=== PATIENT | male | born 1950 | race Caucasian/White ===

== ENCOUNTER → 2020-07-24 08:30 | Outpatient (CLI) | payer MEDICARE, SELFPAY ==
--- NOTE | ~2020-07-24 | XR_ITS ---
EXAMINATION: XR abdomen/kub 1V DATE: 07/24/2020 09:00 INDICATION: Flank pain. TECHNIQUE: A supine view of the abdomen on 2 radiographs was obtained. COMPARISON: CT abdomen and pelvis 07/24/2020 FINDINGS: There are no dilated loops of bowel. There is a large volume of stool in the colon. There a re phleboliths in the pelvis. IMPRESSION: 1. No urolithiasis. 2. Nonobstructive bowel gas pattern. Reviewed, dictated and finalized at location A.
--- NOTE | ~2020-07-24 | CT_ITS ---
EXAMINATION: CT abdomen pelvis wo con DATE: 07/24/2020 09:00 INDICATION: Flank pain and low back pain. TECHNIQUE: Computed tomography (CT) of the abdomen and pelvis was performed without intravenous contr ast. Automated exposure control and iterative reconstruction technique were employed. The dose-length product was 625.56 mGy-cm. COMPARISON: None FINDINGS: Mild scattered linear atelectasis in the bilateral lower lobes. Heart size is normal. No pericardial or pleural effusion. Small sliding-type hiatal hernia. Liver, gallbladder, spleen, pancreas and bilat eral adrenal glands are normal. 2.5 cm exophytic cyst arising from the upper pole of the left kidney. Bilateral kidneys are otherwise unremarkable with no urolithiasis or hydronephrosis. Bowels includin g the appendix are normal. Bladder is normal. Prostatomegaly. No free intraperitoneal gas or fluid. N o pathologically enlarged abdominal or pelvic lymphadenopathy. Small fat-containing left inguinal her dalton. Tiny fat-containing umbilical hernia. Mild thoracolumbar dextrocurvature with moderate to severe lower thoracic and upper lumbar spondylosis. IMPRESSION: 1. No acute intra-abdominal/pelvic process. 2. Moderate to severe lower thoracic and upper lumbar spondylosis. 3. Prostatomegaly. 4. Small sliding-type hiatal hernia. 5. Small fat-containing left inguinal hernia and tiny fat-containing umbilical hernia.. Reviewed, dictated and finalized at location A.
== END ==
PROVIDERS: PCP Internal Medicine; Visit Provider Urology
DX: R10.9 Unspecified abdominal pain (principal); N40.0 Benign prostatic hyperplasia without lower urinary tract symptoms; M47.894 Other spondylosis, thoracic region; M47.896 Other spondylosis, lumbar region; K44.9 Diaphragmatic hernia without obstruction or gangrene; K40.90 Unilateral inguinal hernia, without obstruction or gangrene, not specified as recurrent; K42.9 Umbilical hernia without obstruction or gangrene
CPT/HCPCS: 74018; 74176

== ENCOUNTER 2020-08-01 11:23 | Outpatient (CLI) | payer MEDICARE, SELFPAY ==
--- NOTE | 2020-08-01 11:29 | ECG_ITS ---
Measurements Intervals [place] Rate: 62 P: 58 [place]: 161 QRS: 38 QRSD: 101 T: 49 QT: 396 QTc: 405 Interpretive Statements SINUS RHYTHM DELAYED PRECORDIAL R/S TRANSITION BASELINE ARTIFACT- II, III, AVF BORDERLINE ECG Electronically Signed On 08-01-2020 12:12:45 CDT by Juan Carlos Knight D.O.
== END 2020-08-01 11:24 | disposition home or self-care (01) ==
LOC: ANHSURGERY 11:24
PROVIDERS: PCP Internal Medicine; Visit Provider Urology
DX: E78.2 Mixed hyperlipidemia (principal); N32.9 Bladder disorder, unspecified; R94.31 Abnormal electrocardiogram [ECG] [EKG]; Z01.818 Encounter for other preprocedural examination
CPT/HCPCS: 87086; 93005

== ENCOUNTER → 2020-08-11 00:15 | Outpatient (CLI) | payer MEDICARE, SELFPAY ==
[2020-08-11 19:27] LABS: SARS-CoV-2 RNA PCR Negative
== END ==
PROVIDERS: PCP Internal Medicine; Visit Provider Urology
DX: Z01.812 Encounter for preprocedural laboratory examination (principal); Z20.822 Contact with and (suspected) exposure to COVID-19
CPT/HCPCS: C9803; U0003; U0005

== ENCOUNTER 2020-08-14 00:41 | Day surgery (SDC) | payer MEDICARE, SELFPAY ==
[2020-07-30 12:07] VITALS: BMI 26.9
[2020-08-14] VITALS (7 sets, daily range): BP systolic 120–151; BP diastolic 75–93; PULSE 50–64; RESP 11–16; TEMP 35.7–36; O2SAT 99–100
--- NOTE | 2020-08-14 08:26 | WPDHPUPDATE1 ---
History and Physical Update Update Date/Time: 08/14/20 08:26 History and Physical has been reviewed, including an updated exam of the patient. There are NO changes in the patient's condition. Risks, benefits, and alternatives have been discussed and questions answered. Patient agrees to proceed with procedure.
[2020-08-14] MEDS: LACTATED RINGERS 1,000 ML 30 ML IV CONT (09:01)
--- NOTE | 2020-08-14 09:25 | P.PNAN_ITS ---
Anes - Initial Pre Proc Eval Procedure: Operation Date: 08/14/20 10:30 Proposed Procedures p Cystoscopy with Bladder Biopsy and Fulgeration - Arden Warner MD Date/Time: 08/14/20 09:25 Surgeon: Arden Warner MD Pre Op Diagnosis: bladder lesion Patient Data Age: 69 Gender: M Height: 1.91 m Weight: 98 kg Last Vital Signs Temp 96.3 F L 08/14/20 08:34 Pulse 64 08/14/20 08:34 Resp 16 08/14/20 08:34 BP 133/82 08/14/20 08:34 Pulse Ox 99 08/14/20 08:34 Allergies Allergy/AdvReac Type Severity Reaction Status Date / Time No Known Allergies Allergy Mild Verified 08/14/20 08:54 Home Medications Medication Instructions Recorded Confirmed Type aspirin 81 mg tablet,delayed 81 mg PO DAILY 06/23/19 08/14/20 History release lactobacillus combination no.8 3 3,000 mmu cells PO DAILY 06/23/19 08/14/20 History billion cell capsule multivitamin 1 cap PO DAILY 06/23/19 08/14/20 History omega-3 fatty acids 1,000 mg 1,000 mg PO DAILY 06/23/19 08/14/20 History capsule mometasone 0.1 % topical ointment 1 applic TOPICAL PRN PRN gm 05/16/20 08/14/20 History atorvastatin 10 mg tablet 10 mg PO DAILY #30 tablet 07/25/20 08/14/20 Rx zinc 10 mg PO DAILY 07/30/20 08/14/20 History Patient hx anesthesia problems: none Family hx anesthesia problems: none PMFSH Past Medical History Medical History Bilateral low back pain with sciatica Elevated prostate specific antigen [PSA] Encounter for screening for malignant neoplasm of colon Knee pain, bilateral Malignant neoplasm of bladder, unspecified Mixed hyperlipidemia Other chronic pain Family History Family History Mother Family history of malignant neoplasm of breast in first degree relative Family history of heart disease in male family member before age 55 Father Family history of heart disease in male family member before age 55 Social History Social History Smoking status: Never smoker Alcohol intake: never Living arrangements: with family Spiritual care concerns: No Anes - Eval Final PreProcedure Day of Procedure 08/14/20 09:25 Patient weight: normal Heart: regular rate and rhythm Lungs: clear to auscultation Airway: Mallampati scale class II Neurological: alert and oriented Last oral intake: >/= 8 hours ASA classification: III Emergent: no Anesthetic plan: proceed Anesthesia type and monitoring: general LMA and standard monitoring Informed Consent: The patient's anesthetic plan and its attendant risks and benefits were discussed with the patient/family/POA. Questions were solicited and answers provided to the satisfaction of the patient/family/POA.
[2020-08-14] MEDS: ceFAZolin 2 GM/D5W 50 ML 2 GM/50 ML BAG IVPB (10:05)
--- NOTE | 2020-08-14 10:28 | W.PM.PROC2 ---
Procedure Note - Detailed Date of Procedure 08/14/20 Pre-op Diagnosis bladder lesion Post-op Diagnosis same Procedure Performed Cysto bladder biopsy with fulguration Surgeon Arden Warner MD Anesthesia general Description of Procedure Patient is taken the operative suite and correctly identified. Once anesthesia was obtained he was placed in a dorsal lithotomy position and prepped and draped usual sterile fashion. Twenty-two Greenlandic scope was inserted the bladder and direct vision. There is no urethral strictures. Prostate as lateral lobe hypertrophy as well as a moderate-sized median lobe.. Bladder itself has no papillary growths but does have some erythema along floor prep down lay on the left side. We used the cold cup biopsy to biopsy this area. We fulgurated with a Bugbee electrode. There was good hemostasis. 2% viscous lidocaine was inserted urethra patient is taken recovery room in stable condition. He will call for path results in a week. Drains No Packing No Pathology yes Complications No immediate complications Condition stable Disposition PACU
== END 2020-08-14 12:17 | disposition home or self-care (01) ==
PROVIDERS: PCP Internal Medicine; Visit Provider Urology
PROC: 0TBB8ZX Excision of Bladder, Via Natural or Artificial Opening Endoscopic, Diagnostic (ICD-10-PCS; CPT 52204; principal; 2020-08-14 10:30)
DX: N30.20 Other chronic cystitis without hematuria (principal); E78.5 Hyperlipidemia, unspecified; G89.29 Other chronic pain; Z79.82 Long term (current) use of aspirin; Z85.51 Personal history of malignant neoplasm of bladder
CPT/HCPCS: 52204; 87086; 88305; 93005; A9270; C9803; J0131; J0690; J1100; J2704; J3010; J7120; U0003; U0005

== ENCOUNTER 2020-10-09 09:00 | Outpatient (RCR) | payer MEDICARE, SELFPAY ==
--- NOTE | 2020-09-13 14:42 | PTOPEVAL ---
Thank you for referring Eligio Nunez to [facility].? The patient is scheduled to be seen for therapy? 1 x/week for 6 weeks. Please review, sign, date and return this plan of care PRANAV. I agree with and certify that the following plan of care is medically necessary. Referring Physician Date Attending Provider: Lamin Cabrera, Diagnosis chronic back pain Additional Evaluation Detail He received therapy for his back prior to the start of COVID. He does not perform a HEP. He achieve ~5000 steps a day. Does not perform a fitness or stretching program. Subjective Information He had increased back pain Query Text:As Reported By Patient/ with recent bladder infection. Family He has increased pain with prolonged sitting. He was taking long drives to the [facility] to see family with stopping only every 3-4 hours. At times he has decreased balance on steps when carrying objects. He performs primary care md and yardwork. Denies any pain changes with daily task. He tries to avoid lifting heavy objects. He is able manage 20# without limitations. Improved back pain with movement. Previous Treatments Previous Treatments For This Problem 1.4 yrs ago at [place]. Pain Assessment Bilateral Lower Back Reported Pain Level 1 Pain Description Sharp Pain Frequency Chronic,Continuous Greatest Pain Intensity 4 Pain Aggravating Factors Bending,Prolonged Position Pain Behaviors None Cervical and Lumbar ROM Lumbar ROM Lumbar Flexion Active Floor:Hands to: Lateral Flexion right lateral knee- and left mid thigh Lumbar Comments 25% trunk ext pain with left lateral flex Cervical and Lumbar Muscle Testing Lumbar Strength Upper Back Extension 3-Fair- Lower Back Extension 3-Fair- Lumbar Functional Strength Comments unable to maintain trunk in midline with single leg stance or seated marching Lower Extremity Muscle Strength Testing Hip Strength Bilateral Hip Flexion Strength 4- Good - Hip Extension Strength 3 Fair Hip Abduction Strength 3 Fair Knee
--- NOTE | 2020-09-20 10:31 | PCPTNOTE ---
Patient did not show up for scheduled appointment this date. Called and had to leave a message.
--- NOTE | 2020-10-04 10:16 | PCPTNOTE ---
Patient did not show up for scheduled appointment this date. Called & had to leave a message.
--- NOTE | 2020-10-09 13:35 | PTOPEVAL ---
Physical Therapy Discharge Summary Thank you for referring Eligio Nunez to [facility] [place].? Eligio has received 4 therapy visits to address chronic back pain. He demonstrates indep with his HEP at this time. He has reached his therapy goals and will be DC from therapy services. See summary below for detailed information on progress. Please review, sign, date and return this discharge summary PRANAV. I agree with and certify that the following plan of care is medically necessary. Referring Physician Date Attending Provider: Lamin Cabrera DO Diagnosis chronic back pain Additional Evaluation Detail He received therapy for his back prior to the start of COVID. He achieves ~5000 steps a day. Subjective Information He denies any significant back Query Text:As Reported By Patient/ pain or limitations with Family daily task. He is performing his HEP, but not all of the provided exercises. He reports prolonged sitting. He will be taking long drives to the [facility] to see family with stopping only every 3-4 hours. Pain Assessment Self Report Pain Assessment Bilateral Lower Back Reported Pain Level 0 Lowest Pain Intensity 0 Greatest Pain Intensity 1 Cervical and Lumbar ROM Lumbar ROM Lumbar Flexion Active Floor:Hands to: Lateral Flexion lateral knee joint line:Active Hands to: Lumbar Comments 75% trunk ext no pain with trunk motion Cervical and Lumbar Muscle Testing Lumbar Strength Upper Abdominal Strength 4-Good- Upper Back Extension 3 Fair Lower Back Extension 3 Fair Lumbar Functional Strength Comments unable to maintain trunk in midline with single leg stance improved control and position with seated marching Lower Extremity Muscle Strength Testing Hip Strength Bilateral Hip Flexion Strength 4+ Good + Hip Extension Strength 4- Good - Hip Abduction Strength 3+ Fair + Knee Strength Bilateral Knee Flexion Strength 4+ Good + Knee Extension Strength 5 Normal Palpation Assessment Palpation no tenderness of mid to low back region General Exercise Exercise Type Active,Stabilization Exercise Description reviewed HEP: Query Text:Record Sets, Reps, - sit<>stand with cues for LE Resistance, and Position position and full hip ext to achieve max benefit. - hooklying piriformis
== END 2020-10-09 14:18 | disposition home or self-care (01) ==
LOC: ANHPT 09:00
PROVIDERS: PCP Internal Medicine; Visit Provider Internal Medicine
DX: M54.5 Low back pain (principal); G89.29 Other chronic pain
CPT/HCPCS: 97110; 97162

== ENCOUNTER → 2021-07-13 07:49 | Outpatient (CLI) | payer MEDICARE, SELFPAY ==
--- NOTE | ~2021-07-13 | MR_ITS ---
EXAMINATION: MR lumbar spine wo con DATE: 07/13/2021 08:59 INDICATION: lumbar radiculopathy, lbp radiating down right leg x2mos, pt . TECHNIQUE: Magnetic resonance imaging (MRI) of the lumbar spine was performed without intravenous con trast. Sequences included sagittal T2-weighted FSE, sagittal T2-weighted FS FSE, sagittal T1-weighted FSE, and axial T2-weighted FSE. COMPARISON: CT abdomen pelvis 07/24/2020. FINDINGS: The last fully formed and hydrated disc is designated L5-S1. The marrow signal is benign po ssibly with some degree of conversion. Conus terminates at L1-2. Multilevel disc dehydration. Thoraco lumbar scoliosis. 1 to 2 mm retrolisthesis of T2-L3. 1 to 2 mm anterolisthesis of L4 on L5 and L5 on S1. The following disc levels are specifically discussed: T11-T12: Mild diffuse bulge, 3 mm right paracentral extrusion. There is mild facet joint osteoarthrit is. There is no neural foraminal stenosis. There is no central canal stenosis. T12-L1: Mild diffuse bulge There is moderate facet joint osteoarthritis. There is mild left inferior neural foraminal stenosis. There is no central canal stenosis. L1-L2: Moderate diffuse bulge There is moderate facet joint osteoarthritis. There is moderate neural foraminal stenosis. There is no central canal stenosis. L2-L3: Moderate diffuse bulge with a large right foraminal component. There is moderate facet joint o steoarthritis. There is mild neural foraminal stenosis. There is no central canal stenosis. L3-L4: Large diffuse bulge, superimposed 3 mm right paracentral extrusion, with a small focal annular rent. There is moderate facet joint osteoarthritis. There is moderate right and mild left neural for aminal stenosis. There is moderate central canal stenosis. L4-L5: Large diffuse bulge, 7 mm right paracentral disc extrusion tracking 18 mm up the posterior asp ect of the L4 vertebral body. There is severe facet joint osteoarthritis. There is severe right and m oderate left neural foraminal stenosis. There is severe central canal stenosis. L5-S1: Moderate diffuse bulge. There is severe facet joint osteoarthritis. There is no neural foramin al stenosis. There is no central canal stenosis. IMPRESSION: 1. Severe central canal and right neural foraminal stenosis at L4-5, caused by a combination of a lar ge L4-5 disc extrusion superimposed on a diffuse disc bulge and severe facet/ligamentum hypertrophy. 2. Multilevel mild to moderate degenerative disc and facet changes as described above. Reviewed, dictated and finalized at location K. IMPRESSION: 1. Severe central canal and right neural foraminal stenosis at L4-5, caused by a combination of a large L4-5 disc extrusion superimposed on a diffuse disc bul ge and severe facet/ligamentum hypertrophy. 2. Multilevel mild to moderate degenerative disc and facet changes as described above.
== END ==
PROVIDERS: PCP Internal Medicine; Visit Provider Nurse Practitioner
DX: M54.16 Radiculopathy, lumbar region (principal); M51.36 Other intervertebral disc degeneration, lumbar region
CPT/HCPCS: 72148

== ENCOUNTER 2022-08-20 07:49 | Outpatient (CLI) | payer MEDICARE, SELFPAY ==
--- NOTE | ~2022-08-20 | US_ITS ---
EXAMINATION: US aorta [facility] scr[facility] DATE: 08/20/2022 08:22 INDICATION: Family history of ischemic heart disease, hypercholesterolemia TECHNIQUE: Grayscale, color Doppler, and pulsed Doppler images of the aorta and common iliac arteries were obtained. COMPARISON: None. FINDINGS: Maximum vascular dimensions are as follows: Proximal aorta: 2.8 cm Mid aorta: 2.4 cm Distal aorta: 2.0 cm Right common iliac artery: 1.6 cm Left common iliac artery: 1.5 cm There is no evidence of abdominal aortic aneurysm. IMPRESSION: 1. No sonographically detected abdominal aortic aneurysm. Reviewed, dictated and finalized at location []
== END 2022-08-20 07:50 | disposition home or self-care (01) ==
PROVIDERS: PCP Family Medicine; Visit Provider Nurse Practitioner
DX: E78.00 Pure hypercholesterolemia, unspecified (principal); Z82.49 Family history of ischemic heart disease and other diseases of the circulatory system
CPT/HCPCS: 76706

== ENCOUNTER 2023-01-28 08:52 | Outpatient (CLI) | payer MEDICARE, SELFPAY | END 2023-01-28 08:53 | disposition home or self-care (01) | LOC: ANHBWCAUD 08:53 | PROVIDERS: PCP Family Medicine; Visit Provider Otolaryngology | DX: H93.19 Tinnitus, unspecified ear (principal); H90.3 Sensorineural hearing loss, bilateral | CPT/HCPCS: 92557; 92567 ==

== ENCOUNTER 2023-06-07 16:46 | Emergency (ER) | payer MEDICARE, SELFPAY ==
[2023-06-07 16:55] VITALS: BP 122/65; PULSE 97; RESP 18; TEMP 36.3; O2SAT 95
--- NOTE | 2023-06-07 17:44 | ECG_ITS ---
SEE SCANNED COPY FOR CONFIRMED REPORT MTDD
--- NOTE | 2023-06-07 17:46 | ED.DIZZY ---
HPI - Dizziness General Chief Complaint: Dizziness Stated Complaint: vertigo Time Seen by Provider: 06/07/23 17:37 History of Present Illness HPI Narrative: 72-year-old male with history of hyperlipidemia and vertigo presents to emergency department for vertigo symptoms of started last night. Patient states he began feeling dizzy last night after bending over for a few minutes working on his deck. States he took 25 mg of meclizine at that time but many times throughout the night to go to the restroom. States every time he woke up he felt somewhat dizzy still. He woke up this morning again felt dizzy, took 25 mg of meclizine with some improvement, then again took 50 mg of meclizine at 12:00 p.m. today. He states each time nothing helps a little bit but does not fully resolve his vertigo. He describes the dizziness as the room spinning. He denies a sensation of lightheadedness or presyncope. Denies chest pain or shortness of breath, vision changes, focal numbness or weakness, headache or fever, abdominal pain, vomiting, diarrhea, dysuria or hematuria. Related Data Home Medications Medication Instructions Recorded Confirmed lactobacillus combination no.8 3 3,000 mmu cells PO DAILY 06/23/19 02/05/23 billion cell capsule (Adult Probiotic) multivitamin 1 cap PO DAILY 06/23/19 02/05/23 omega-3 fatty acids 1,000 mg 1,000 mg PO DAILY 06/23/19 02/05/23 capsule (Fish Oil Concentrate) mometasone 0.1 % topical ointment 1 applic topical PRN PRN Rash 05/16/20 02/05/23 zinc 10 mg tablet 10 mg PO DAILY 07/30/20 02/05/23 psyllium husk 0.4 gram capsule 0.4 g PO DAILY PRN 08/07/22 02/05/23 (Daily Fiber) Allergies Allergy/AdvReac Type Severity Reaction Status Date / Time No Known Allergies Allergy Mild Verified 06/07/23 17:56 Review of Systems Review of Systems: CONSTITUTIONAL: Denies fever, chills, or sweats. EYES: Denies visual changes, redness, or discharge. ENT: Denies rhinorrhea, congestion, sore throat, or otalgia. CARDIOVASCULAR: Denies chest pain, palpitations, or edema. RESPIRATORY: Denies cough or dyspnea. GASTROINTESTINAL: Denies abdominal pain, nausea, vomiting, or diarrhea. GENITOURINARY: Denies dysuria or hematuria. SKIN: Denies rash or itching. MUSCULOSKELETAL: Denies back pain, joint pain, or myalgia. NEUROLOGIC: See HPI PSYCHIATRIC: Denies anxiety or depression. PMFSH Past Medical History Medical History Bilateral low back pain with sciatica Chronic low back pain with sciatica Elevated prostate specific antigen [PSA] Encounter for screening for malignant neoplasm of colon Knee pain, bilateral Malignant neoplasm of bladder, unspecified Mixed hyperlipidemia Other chronic pain Family History Family History Mother Family history of malignant neoplasm of breast in first degree relative Family history of heart disease in male family member before age 55 Father Family history of heart disease in male family member before age 55 Social History Social History Smoking status: Never smoker Alcohol intake: never Substance use: never Substance use type: does not use Lack of Transportation: No Lack of Food: Never True Current Housing: I Have Housing Concerned About Future Housing: No Difficulty Paying Gas/Electric Bills: No Difficulty Paying for Meds: No Currently Unemployed: No Education: Master's Degree or Higher Living arrangements: with family Gender identity (if verbalized by the patient): Male Spiritual care concerns: No Exam Narrative: GENERAL: Well-appearing, well-nourished, and in no acute distress. HEAD: Normocephalic, atraumatic. EYES: PERRLA and EOMI. ENT: Nares clear, no rhinorrhea or epistaxis. Mucous membranes moist. NECK: Supple. CHEST: Clear to auscultation. No respiratory
[2023-06-07 17:52] VITALS: PULSE 85
[2023-06-07] MEDS: SODIUM CHLORIDE 0.9% IV 1,000 ML 999 ML IV CONT (18:03)
[2023-06-07] MEDS: diazePAM INJ (*CRX) 10 MG/2 ML SYRINGE 5 MG IV PUSH (18:04)
[2023-06-07 18:08] VITALS: BP 133/86; PULSE 86; RESP 19; O2SAT 94
[2023-06-07 18:08] LABS: Basophils Absolute Auto 0.1 K/mm3 (0.0-0.1); Basophils Percent Auto 0.8 % (0.2-1.2); Eosinophils Absolute Auto 1.6 K/mm3 (0-0.3); Eosinophils Percent Auto 24.5 % (0-4.4); Hematocrit 43.8 % (42.0-52.0); Hemoglobin 14.8 g/dL (14.0-18.0); Immature Granulocyte Absolute 0.02 K/mm3 (0.00-0.031); Immature Granulocyte Percent A 0.3 % (0-0.5); Lymphocytes Absolute Auto 1.71 K/mm3 (0.9-3.2); Lymphocytes Percent Auto 26.2 % (18.3-44.2); Mean Corpuscular HGB Conc 33.8 g/dl (32-36); Mean Corpuscular Hemoglobin 30.1 pg (26-34); Mean Platelet Volume 9.4 fl (7.4-10.4); Monocytes Absolute Auto 0.7 K/mm3 (0.1-0.6); Neutrophils Absolute Auto 2.4 K/mm3 (1.3-6.7); Neutrophils Percent Auto 37.2 % (45.5-73.1); Platelet Count Result 295 k/mm3 (150-375); Red Blood Count 4.92 M/mm3 (4.6-6.20); Red Cell Distribution Width 13.8 % (11.5-14.5); White Blood Count 6.5 K/mm3 (4.5-10.0)
[2023-06-07 18:33] LABS: Alanine Aminotransferase 25 U/L (6-50); Albumin Level 4.2 g/dL (3.5-5.1); Alkaline Phosphatase 85 U/L (38-126); Anion Gap 10 mmol/L (4-12); Aspartate Amino Transferase 36 U/L (17-59); Bilirubin,Total 0.7 mg/dL (0.2-1.3); Blood Urea Nitrogen 19 mg/dL (9-20); Calcium 9.9 mg/dL (8.4-10.2); Carbon Dioxide 23 mmol/L (22-30); Chloride 106 mmol/L (98-107); Estimated CRCL calculation 71 ml/min; Estimated Glomerular Filt Rate > 60; Glucose 133 mg/dL (65-110); Potassium 3.8 mmol/L (3.4-5.0); Sodium 139 mmol/L (137-145)
[2023-06-07 19:24] LABS: Appearance Urine Clear (Clear); Bilirubin Urine Negative (Negative); Blood Urine Negative (Negative); Color Urine Yellow (Yellow); Glucose Urine UA Negative (Negative); Ketones Urine Negative (Negative); Leukocyte Esterase Ur Negative LEU/UL (Negative); Nitrate Urine Negative (Negative); Protein Urine Negative (Negative); Specific Grav Ur 1.015 (1.001-1.035); Urobilinogen Urine 0.2 mg/dL (<2.0); pH Urine 6.5 (5.0-9.0)
[2023-06-07 19:29] LABS: Add Urine Microscopic? NO
== END 2023-06-07 19:44 | disposition home or self-care (01) ==
PROVIDERS: Emergency Provider Physician Assistant; PCP Nurse Practitioner
DX: R42 Dizziness and giddiness (principal); E78.2 Mixed hyperlipidemia; Z85.51 Personal history of malignant neoplasm of bladder
CPT/HCPCS: 36415; 80053; 81003; 83735; 85025; 93005; 96361; 96374; 99284; J3360; J7030

== ENCOUNTER 2023-07-06 14:52 | Outpatient (CLI) | payer MEDICARE, SELFPAY ==
--- NOTE | ~2023-07-06 | MR_ITS ---
EXAMINATION: MR brain IAC wo/w con DATE: 07/06/2023 15:40 INDICATION: Vertigo. Repeated falls. TECHNIQUE: Magnetic resonance imaging (MRI) of the brain, brainstem, and internal auditory canals was performed without and with 20 mL MultiHance intravenous contrast. COMPARISON: None. FINDINGS: There is chronic encephalomalacia in right frontal and temporal lobes. There is no intracra nial hemorrhage, acute infarction, or abnormal intracranial mass lesion. There is an old infarct in l eft frontoparietal region. There are scattered areas of nonspecific increased T2-weighted signal inte nsity in the cerebral white matter, which is within normal limits for the patient's age. The ventricl es are normal in size. There is mucosal thickening in the paranasal sinuses. The orbits are normal. T he internal auditory canals, inner ears, tympanic cavities, and mastoid air cells are normal. IMPRESSION: 1. Chronic encephalomalacia in right frontal and temporal lobes. 2. 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 Reviewed, dictated and finalized at location A.
== END 2023-07-06 14:53 ==
PROVIDERS: PCP Nurse Practitioner; Visit Provider Nurse Practitioner
DX: R29.6 Repeated falls (principal); R42 Dizziness and giddiness; Z86.79 Personal history of other diseases of the circulatory system
CPT/HCPCS: 70553; A9577